=== PATIENT | female | born 1940 | race Caucasian/White ===

== ENCOUNTER 2021-04-09 11:45 | Inpatient (IN) | payer MEDICARE, OTHER ==
[2021-04-09 12:30] LABS: ALT (SGPT) 9 U/L (8-55); AST (SGOT) 20 U/L (5-34); Albumin 3.5 g/dL (3.4-4.8); Alkaline Phosphatase 64 U/L (40-110); Anion Gap 13 mmol/L (10-20); BUN (Urea Nitrogen) 12 mg/dL (9.8-20.1); Bilirubin, Total 0.5 mg/dL (0.2-1.2); Calc. Creatinine Clearance 0 mL/min (70-130); Calcium 8.9 mg/dL (7.8-10.44); Carbon Dioxide 25 mmol/L (23-31); Chloride 103 mmol/L (98-107); Globulin 2.3 g/dL (2.4-3.5); Glucose 99 mg/dL (83-110); Lipase 75 U/L (8-78); Potassium 3.6 mmol/L (3.5-5.1); Protein, Total 5.8 g/dL (5.8-8.1); Sodium 137 mmol/L (136-145)
[2021-04-09 12:33] LABS: Hemoglobin 7.6 g/dL (12.0-16.0); Mean Corpuscular Hemoglobin 28.7 pg (27.0-31.0); Mean Corpuscular Volume 86.9 fL (78.0-98.0); Mean Platelet Volume 7.6 fL (7.4-10.4); Platelet Count 164 thou/uL (130-400); RBC Distribution Width 15.8 % (11.5-14.5); Red Blood Cell (RBC) Count 2.66 mill/uL (4.20-5.40); White Blood Cell (WBC) Count 1.7 thou/uL (4.8-10.8)
[2021-04-09 12:58] LABS: Band 51 % (5-11); Eosinophils 2 % (0-10); Lymphocytes 10 % (21-51); MDiff Complete? YES; Metamyelocyte 1 % (0-0); Monocytes 7 % (0-10); Neutrophil 29 % (42-75)
[2021-04-09] MEDS ORDERED: Iopamidol-370 76% 500 ML 1 ML ONE (13:47)
[2021-04-09 14:06] LABS: Bilirubin Negative (Negative); Blood, Urine Negative (Negative); Clarity Clear (Clear); Glucose, Urine (Dipstick) Normal (Negative); Ketone, Urine Negative (Negative); Leukocyte Negative Leu/uL (Negative); Nitrite Negative (Negative); Protein, Urine (Dipstick) Negative (Neg-Trace); Specific Gravity, Urine 1.006 (1.002-1.036); Urobilinogen Normal mg/dL (Less than 2); pH, Urine 5.5 (5.0-9.0)
[2021-04-09] MEDS ORDERED: Acetaminophen 325 MG TAB PO PRN (16:13)
[2021-04-09] MEDS ORDERED: Lorazepam 0.5 MG TAB PO PRN ×2 (16:32→22:02)
[2021-04-09 22:59] LABS: Hemoglobin 9.1 g/dL (12.0-16.0)
[2021-04-10 01:45] VITALS: BMI 24.0
[2021-04-10] MEDS: Pantoprazole 40 MG VIAL IVP SCH ×3 (02:10→20:32)
[2021-04-10] MEDS: Zolpidem Tartrate 5 MG TAB PO SCH ×2 (02:11→20:32)
[2021-04-10] MEDS: Lactated Ringer's 1,000 ML IV SCH ×3 (02:12→12:30)
[2021-04-10 09:01] LABS: Hemoglobin 9.8 g/dL (12.0-16.0); Mean Corpuscular HGB CONC 33.3 g/dL (32.0-36.0); Mean Corpuscular Hemoglobin 29.3 pg (27.0-31.0); Mean Platelet Volume 8.2 fL (7.4-10.4); Platelet Count 129 thou/uL (130-400); RBC Distribution Width 14.6 % (11.5-14.5); Red Blood Cell (RBC) Count 3.34 mill/uL (4.20-5.40); White Blood Cell (WBC) Count 1.5 thou/uL (4.8-10.8)
[2021-04-10] MEDS: Multivit, Therapeutic 1 TAB PO SCH (09:09)
[2021-04-10] MEDS: Atorvastatin Calcium 20 MG TAB PO SCH (09:09)
[2021-04-10] MEDS: Lisinopril 20 MG TAB PO SCH (09:09)
[2021-04-10] MEDS: Calcium Carbonate 600 MG + Vit D TAB PO SCH (09:09)
[2021-04-10 09:15] LABS: ALT (SGPT) 9 U/L (8-55); AST (SGOT) 21 U/L (5-34); Alkaline Phosphatase 56 U/L (40-110); Anion Gap 11 mmol/L (10-20); BUN (Urea Nitrogen) 8 mg/dL (9.8-20.1); Bilirubin, Total 0.8 mg/dL (0.2-1.2); Calc. Creatinine Clearance 66 mL/min (70-130); Calcium 8.3 mg/dL (7.8-10.44); Carbon Dioxide 24 mmol/L (23-31); Chloride 107 mmol/L (98-107); Globulin 1.8 g/dL (2.4-3.5); Glucose 76 mg/dL (83-110); Potassium 3.3 mmol/L (3.5-5.1); Protein, Total 4.8 g/dL (5.8-8.1); Sodium 139 mmol/L (136-145)
[2021-04-10 09:34] LABS: SARS-CoV-2 NAA Rapid Test Not Detected (NotDetected)
[2021-04-10] MEDS ORDERED: HYDROcodone/Acetaminophen 5/325 mg Tablet PO PRN (09:38)
[2021-04-10 09:41] LABS: Band 3 % (5-11); Eosinophils 2 % (0-10); Lymphocytes 12 % (21-51); MDiff Complete? YES; Metamyelocyte 2 % (0-0); Monocytes 26 % (0-10); Neutrophil 53 % (42-75); Platelet Morphology Comment Appears Decreased; Polychromasia SLIGHT = 2-3 cells (100X) (0-2/hpf)
[2021-04-10] MEDS ORDERED: Lidocaine 1% PF 5 ML VIAL ONE (10:47)
[2021-04-10] MEDS ORDERED: PROPOFOL 200 MG/20 ML VIAL ONE (10:47)
[2021-04-10] MEDS ORDERED: Potassium Chloride 20 MEQ TAB PO SCH (12:00)
[2021-04-10] MEDS: Gabapentin 300 MG CAP PO SCH (20:31)
[2021-04-11 06:24] LABS: Hemoglobin 9.2 g/dL (12.0-16.0); Mean Corpuscular HGB CONC 33.5 g/dL (32.0-36.0); Mean Corpuscular Hemoglobin 29.3 pg (27.0-31.0); Mean Corpuscular Volume 87.4 fL (78.0-98.0); Mean Platelet Volume 7.8 fL (7.4-10.4); Platelet Count 129 thou/uL (130-400); RBC Distribution Width 14.6 % (11.5-14.5); Red Blood Cell (RBC) Count 3.14 mill/uL (4.20-5.40)
[2021-04-11 06:51] LABS: Band 7 % (5-11); Eosinophils 8 % (0-10); Lymphocytes 11 % (21-51); MDiff Complete? YES; Monocytes 24 % (0-10); Neutrophil 50 % (42-75); White Blood Cell (WBC) Count 1.3 thou/uL (4.8-10.8)
[2021-04-11] MEDS: Lactated Ringer's 1,000 ML IV SCH ×3 (09:00→18:45)
[2021-04-11] MEDS: Calcium Carbonate 600 MG + Vit D TAB PO SCH (09:00)
[2021-04-11 09:39] LABS: ALT (SGPT) 7 U/L (8-55); AST (SGOT) 22 U/L (5-34); Alkaline Phosphatase 59 U/L (40-110); Anion Gap 13 mmol/L (10-20); BUN (Urea Nitrogen) 4 mg/dL (9.8-20.1); Bilirubin, Total 0.7 mg/dL (0.2-1.2); Calc. Creatinine Clearance 67 mL/min (70-130); Calcium 8.3 mg/dL (7.8-10.44); Carbon Dioxide 23 mmol/L (23-31); Chloride 107 mmol/L (98-107); Glucose 101 mg/dL (83-110); Potassium 3.6 mmol/L (3.5-5.1); Sodium 139 mmol/L (136-145)
[2021-04-11] MEDS: Gabapentin 300 MG CAP PO SCH ×2 (09:57→20:15)
[2021-04-11] MEDS: Lisinopril 20 MG TAB PO SCH (09:57)
[2021-04-11] MEDS: Atorvastatin Calcium 20 MG TAB PO SCH (09:57)
[2021-04-11] MEDS: Multivit, Therapeutic 1 TAB PO SCH (09:57)
[2021-04-11] MEDS: Pantoprazole 40 MG VIAL IVP SCH ×2 (09:59→20:16)
[2021-04-11] MEDS: Zolpidem Tartrate 5 MG TAB PO SCH (20:16)
[2021-04-12] MEDS ORDERED: Polyethylene Glycol 3350 17 GM Packet PO PRN (06:04)
[2021-04-12 06:20] LABS: Hemoglobin 9.1 g/dL (12.0-16.0); Mean Corpuscular HGB CONC 33.5 g/dL (32.0-36.0); Mean Corpuscular Hemoglobin 29.6 pg (27.0-31.0); Mean Corpuscular Volume 88.3 fL (78.0-98.0); Mean Platelet Volume 8.2 fL (7.4-10.4); Platelet Count 114 thou/uL (130-400); RBC Distribution Width 14.7 % (11.5-14.5); Red Blood Cell (RBC) Count 3.06 mill/uL (4.20-5.40); White Blood Cell (WBC) Count 1.5 thou/uL (4.8-10.8)
[2021-04-12 06:30] LABS: ALT (SGPT) 7 U/L (8-55); AST (SGOT) 19 U/L (5-34); Albumin 2.6 g/dL (3.4-4.8); Alkaline Phosphatase 52 U/L (40-110); Anion Gap 10 mmol/L (10-20); BUN (Urea Nitrogen) 4 mg/dL (9.8-20.1); Bilirubin, Total 0.5 mg/dL (0.2-1.2); Calc. Creatinine Clearance 69 mL/min (70-130); Calcium 7.9 mg/dL (7.8-10.44); Carbon Dioxide 25 mmol/L (23-31); Chloride 107 mmol/L (98-107); Globulin 1.8 g/dL (2.4-3.5); Glucose 106 mg/dL (83-110); Potassium 3.3 mmol/L (3.5-5.1); Protein, Total 4.4 g/dL (5.8-8.1); Sodium 139 mmol/L (136-145)
[2021-04-12 08:13] LABS: Elliptocytes SLIGHT = 2-5 cells (100X) (0-1/hpf); Eosinophils 6 % (0-10); Lymphocytes 11 % (21-51); MDiff Complete? YES; Monocytes 19 % (0-10); Neutrophil 64 % (42-75); Platelet Morphology Comment Appears Decreased
[2021-04-12] MEDS: Calcium Carbonate 600 MG + Vit D TAB PO SCH (10:10)
[2021-04-12] MEDS: Gabapentin 300 MG CAP PO SCH ×2 (10:10→21:53)
[2021-04-12] MEDS: Multivit, Therapeutic 1 TAB PO SCH (10:10)
[2021-04-12] MEDS: Lisinopril 20 MG TAB PO SCH (10:11)
[2021-04-12] MEDS: Atorvastatin Calcium 20 MG TAB PO SCH (10:11)
[2021-04-12] MEDS: Pantoprazole 40 MG VIAL IVP SCH ×2 (10:12→21:54)
[2021-04-12] MEDS ORDERED: Potassium Chloride 20 MEQ TAB PO SCH (10:15)
[2021-04-12] MEDS ORDERED: Polyethylene Glycol 3350 17 GM Packet PO SCH (10:45)
[2021-04-12] MEDS ORDERED: Lorazepam 1 MG TAB PO PRN (13:30)
[2021-04-12] MEDS: Zolpidem Tartrate 5 MG TAB PO SCH (21:54)
[2021-04-13 05:53] LABS: Band 12 % (5-11); Eosinophils 8 % (0-10); Hemoglobin 9.8 g/dL (12.0-16.0); Hypochromia SLIGHT = 6-15 cells (100X) (0-5/hpf); Lymphocytes 10 % (21-51); MDiff Complete? YES; Mean Corpuscular HGB CONC 32.7 g/dL (32.0-36.0); Mean Corpuscular Volume 88.5 fL (78.0-98.0); Mean Platelet Volume 8.1 fL (7.4-10.4); Monocytes 26 % (0-10); Neutrophil 42 % (42-75); Platelet Count 118 thou/uL (130-400); Platelet Morphology Comment Appears Decreased; RBC Distribution Width 14.7 % (11.5-14.5); Reactive Lymphocytes 2 % (0-10); Red Blood Cell (RBC) Count 3.38 mill/uL (4.20-5.40); White Blood Cell (WBC) Count 1.5 thou/uL (4.8-10.8)
[2021-04-13 06:00] LABS: ALT (SGPT) 9 U/L (8-55); AST (SGOT) 18 U/L (5-34); Albumin 2.8 g/dL (3.4-4.8); Alkaline Phosphatase 55 U/L (40-110); Anion Gap 9 mmol/L (10-20); BUN (Urea Nitrogen) 5 mg/dL (9.8-20.1); Bilirubin, Total 0.6 mg/dL (0.2-1.2); Calc. Creatinine Clearance 65 mL/min (70-130); Calcium 8.2 mg/dL (7.8-10.44); Carbon Dioxide 27 mmol/L (23-31); Chloride 107 mmol/L (98-107); Globulin 1.7 g/dL (2.4-3.5); Glucose 97 mg/dL (83-110); Potassium 3.7 mmol/L (3.5-5.1); Protein, Total 4.5 g/dL (5.8-8.1); Sodium 139 mmol/L (136-145)
[2021-04-13] MEDS ORDERED: Polyethylene Glycol 3350 17 GM Packet PO PRN (06:04)
[2021-04-13] MEDS ORDERED: Polyethylene Glycol 3350 17 GM Packet PO SCH (09:00)
[2021-04-13] MEDS: Calcium Carbonate 600 MG + Vit D TAB PO SCH (09:37)
[2021-04-13] MEDS: Multivit, Therapeutic 1 TAB PO SCH (09:37)
[2021-04-13] MEDS: Atorvastatin Calcium 20 MG TAB PO SCH (09:37)
[2021-04-13] MEDS: Lisinopril 20 MG TAB PO SCH (09:37)
[2021-04-13] MEDS: Pantoprazole 40 MG VIAL IVP SCH (09:38)
[2021-04-13] MEDS: Gabapentin 300 MG CAP PO SCH (09:38)
[2021-04-13 12:39] VITALS: BP 119/75; TEMP 98.5
== END 2021-04-13 15:48 | disposition short-term general hospital (02) | DRG 840 ==
LOC: ERS 11:45 → SURG B 14:55
PROVIDERS: ADMIT Family Medicine; ATTEND Family Medicine
PROC: 30233N1 Transfusion of Nonautologous Red Blood Cells into Peripheral Vein, Percutaneous Approach (ICD-10-PCS; 2021-04-09)
PROC: 0DB98ZX Excision of Duodenum, Via Natural or Artificial Opening Endoscopic, Diagnostic (ICD-10-PCS; principal; 2021-04-10)
DX: C85.13 Unspecified B-cell lymphoma, intra-abdominal lymph nodes (principal); E43 Unspecified severe protein-calorie malnutrition; Z20.822 Contact with and (suspected) exposure to COVID-19; D61.818 Other pancytopenia; K92.2 Gastrointestinal hemorrhage, unspecified; C82.90 Follicular lymphoma, unspecified, unspecified site; E78.5 Hyperlipidemia, unspecified; R13.10 Dysphagia, unspecified; R62.7 Adult failure to thrive; M54.30 Sciatica, unspecified side; G47.00 Insomnia, unspecified; F41.9 Anxiety disorder, unspecified; E78.00 Pure hypercholesterolemia, unspecified; I10 Essential (primary) hypertension; I45.81 Long QT syndrome; E87.6 Hypokalemia; Z88.2 Allergy status to sulfonamides; Z79.82 Long term (current) use of aspirin; Z79.899 Other long term (current) drug therapy; Z82.3 Family history of stroke; Z68.24 Body mass index [BMI] 24.0-24.9, adult; Z92.21 Personal history of antineoplastic chemotherapy; Z90.49 Acquired absence of other specified parts of digestive tract; Z90.710 Acquired absence of both cervix and uterus
CPT/HCPCS: 36415; 36430; 74177; 80053; 81003; 82274; 83605; 83690; 84145; 85025; 86850; 86900; 86901; 87040; 87086; 88305; 88341; 88342; 88360; 93005; 94760; C9113; J2704; P9016; Q9967; U0002; U0005